=== PATIENT | female | born 1950 | race Caucasian/White ===

== ENCOUNTER 2016-11-05 14:25 | Outpatient (CLI) | payer MEDICARE, OTHER ==
[~2016-11-05] VITALS: Ht 170.2 cm; Wt 97.1 kg
[2016-11-05 14:39] VITALS: BP 121/74
[2016-11-05] MEDS ORDERED: CYCL10TA9 PO (15:18)
[2016-11-05] MEDS ORDERED: CALC-6 PO (15:18)
[2016-11-05] MEDS ORDERED: SIMV40TA4 PO (15:18)
[2016-11-05] MEDS ORDERED: METF500T8 PO (15:18)
[2016-11-05] MEDS ORDERED: METO10TA3 PO (15:18)
[2016-11-05] MEDS ORDERED: CANA300T PO (15:18)
[2016-11-05] MEDS ORDERED: OMEP20TA33 PO (15:18)
[2016-11-05] MEDS ORDERED: ASPI-586 PO (15:18)
[2016-11-05] MEDS ORDERED: CITA20TA7 PO (15:18)
[2016-11-05] MEDS ORDERED: MULT-974 PO (15:18)
== END 2016-11-05 14:50 | disposition home or self-care (01) ==
LOC: PREOP 14:25
PROVIDERS: ATTEND Obstetrics & Gynecology
DX: Z01.818 Encounter for other preprocedural examination (principal); N81.6 Rectocele
CPT/HCPCS: 87081

== ENCOUNTER 2016-11-10 06:00 | Day surgery (SDC) | payer MEDICARE, OTHER ==
[~2016-11-10] VITALS: Ht 170.2 cm; Wt 97.1 kg
[~2016-11-10 06:00] MED LIST: ASPI-586 PO; CALC-6 PO; CANA300T PO; CITA20TA7 PO; CYCL10TA9 PO; METF500T8 PO; METO10TA3 PO; MULT-974 PO; OMEP20TA33 PO; SIMV40TA4 PO
[2016-11-10] MEDS ORDERED: FAMOTIDINE 20MG/2ML IV (PEPCID) IV ONE (06:30)
[2016-11-10] MEDS ORDERED: ceFAZolin 1,000 MG (ANCEF) VIAL ONE (06:32)
[2016-11-10] MEDS ORDERED: metroNIDAZOLE 500MG/100ML IVPB 100 ML ONE (06:32)
[2016-11-10] MEDS ORDERED: NS (IVPB) 50 ML ONE (06:32)
[2016-11-10] MEDS: LACTATED RINGERS 1,000 ML IV PRN ×3 (06:43→10:04)
[2016-11-10] MEDS ORDERED: metroNIDAZOLE 500 MG/100 ML IVPB (PRE-MIX) IV ONE (06:45)
[2016-11-10] MEDS ORDERED: ceFAZolin 1 GM/NS 50 ML IVPB IV ONE ×2 (06:45)
[2016-11-10] MEDS ORDERED: CATHETER FLUSH 10 ML SYR IV PRN (06:45)
[2016-11-10] MEDS ORDERED: ESTRADIOL VAGINAL CREAM 42.5 GM (ESTRACE) VG ONE (07:16)
[2016-11-10] MEDS ORDERED: NS (IVPB) 100 ML ONE (07:16)
[2016-11-10] MEDS ORDERED: VASOPRESSIN INJECTION 20 UNIT/ML VIAL ONE (07:16)
[2016-11-10 07:18] VITALS: BP 138/92
--- NOTE | 2016-11-10 07:19 | Progress Note-Pre Operative ---
Pre-Operative Progress Note H&P Reviewed The H&P was reviewed, patient examined and no changes noted. Date H&P Reviewed: Nov 10, 2016 Time H&P Reviewed: 07:20 Pre-Operative Diagnosis: rectocele WOODY NEAL DO Nov 10, 2016 07:19
[2016-11-10] MEDS ORDERED: LIDOCAINE PF 2% 10 ML (XYLOCAINE) AMP ONE (07:20)
[2016-11-10] MEDS ORDERED: LACTATED RINGERS 1,000 ML IV ONE ×3 (07:20→10:01)
[2016-11-10] MEDS ORDERED: proPOfol 200 MG/20 ML (DIPRIVAN) VIAL IV ONE (07:20)
[2016-11-10] MEDS ORDERED: SEVOFLURANE (ULTANE) 15 ML INHAL SOLN ONE ×6 (07:20→09:10)
[2016-11-10] MEDS ORDERED: ONDANSETRON 4 MG/2 ML (SDV) Z0FRAN ONE (07:20)
[2016-11-10] MEDS ORDERED: fentaNYL INJECTION 100 MCG/2 ML AMP ONE (07:21)
[2016-11-10] MEDS ORDERED: MIDAZOLAM 2 MG/2 ML (VERSED) VIAL ONE (07:21)
--- NOTE | 2016-11-10 09:07 | Operative Report ---
Operative Report Date of Procedure/Surgery Nov 10, 2016 Surgeon (s) WOODY NEAL DO Sample Taker Operator (s): GLORIA Box, MS IV Post-Operative Diagnosis Rectocele Procedure Performed Posterior colporrhaphy, perineorrhaphy Description of Procedure Anesthesia Type: General Estimated blood loss (mL): 100 Specimen(s) collected/removed none Description of the Procedure With informed consent, the patient was taken to the OR where general anesthesia was found to be adequate. She was prepped and draped in the usual sterile fashion in the dorsolithotomy position. A Maguire catheter was placed in the vagina. The above mentioned findings were found. The perineum was grasped on either side of the perineum with Chante clamps. the posterior wall was injected with dilute vasopressin. An incision was made in the midline and then Quintanilla scissors were used to undermine the posterior vaginal epithelium. There was extensive scarring from previous perineum lacerations and repairs and this needed to be dissected out sharply with a knife and Metzenbaum scissors. The lone star retractor was placed and sutured into place. The vaginal epithelium was dissected gently off the posterior vaginal mucosa to the vaginal cuff. There was a posterior enterocele that was encountered. Once the epithelium was dissected off the posterior vaginal fascia, the enterocele was reduced and repaired with a pursestring stitch of 0-0 Ethibond. I then repaired the posterior defect with interrupted mattress stitches of 2-0 Vicryl. due to the large defect, i placed two layers of suture. I then trimmed the excess vaginal mucosa and the repair the vaginal epithelium with 2-0 Vicryl in a running fashion to the hymen. The patient had a large hymenal remnant I now injected the perineal area with dilute vasopressin. I then removed pyramidal shaped portion of the perineum. removing all the previous scarring and the hymenal remnant. I repaired the perineum with 2-0 Vicryl in standard fashion. There was good hemostasis. The vagina was irrigated and vaginal packing was placed with Estrace cream. Findings of the Procedure 3-4 + rectocele, gapy introitus, hymenal remnant. High cystocele (patient declined repair) Allergies and Home Medications Allergies Coded Allergies: No Known Drug Allergies (Unverified , 11/05/16) Home Medications Aspirin 81 Mg Tablet.dr, 81 MG PO DAILY, (Reported) Calcium Carbonate/Vitamin D3 1 Each Tablet, 1 EACH PO DAILY, (Reported) Canagliflozin 300 Mg Tablet, 300 MG PO DAILY, (Reported) Citalopram Hydrobromide 20 Mg Tablet, 20 MG PO DAILY, (Reported) Cyclobenzaprine HCl 10 Mg Tablet, 10 MG PO BID, (Reported) Docusate Sodium 100 Mg Capsule, 100 MG PO BID, #60 Ref 3 Prescribed by: WOODY NEAL on 11/10/161728 Ibuprofen 600 Mg Tablet, 600 MG PO Q6H, #40 Prescribed by: WOODY NEAL on 11/10/161728 Metformin HCl 500 Mg Tab.er.24h, 500 MG PO DAILY, (Reported) Methylcellulose 500 Mg Tablet, 1,000 MG PO QID, #120 Prescribed by: WOODY NEAL on 11/10/161728 Metoclopramide HCl 10 Mg Tablet, 10 MG PO ACHS, (Reported) Multivitamin 1 Each Tablet, 1 EACH PO DAILY, (Reported) Omeprazole Magnesium 20 Mg Tablet.dr, 40 MG PO DAILY, (Reported) Simvastatin 40 Mg Tablet, 40 MG PO DAILY, (Reported) WOODY NEAL DO Nov 10, 2016 09:07
[2016-11-10] MEDS ORDERED: ONDANSETRON 4 MG/2 ML (SDV) Z0FRAN IV PRN (09:15)
[2016-11-10] MEDS ORDERED: BENZOCAINE/MENTHOL (DERMOPLAST) 56 ML CAN TP PRN (09:15)
[2016-11-10] MEDS ORDERED: PATIENT MAY USE OWN MEDS, ALL MC SCH (09:15)
[2016-11-10] MEDS ORDERED: METOCLOPRAMIDE INJ 10 MG/2 ML (REGLAN) IV PRN (09:15)
[2016-11-10] MEDS ORDERED: morphine INJ 10 MG/ML 1ML (SYR OR VIAL) IV PRN (09:15)
[2016-11-10] MEDS ORDERED: HYDROcodone/APAP 5 MG/325 MG (LORTAB) TAB PO PRN (09:15)
[2016-11-10] MEDS ORDERED: ONDANSETRON 4 MG/2 ML (SDV) Z0FRAN IVP PRN (09:30)
[2016-11-10] MEDS ORDERED: morphine INJ 10 MG/ML 1ML (SYR OR VIAL) IVP PRN (09:30)
[2016-11-10] MEDS: KETOROLAC 30 MG/ML VIAL IV SCH ×3 (09:30→21:39)
[2016-11-10] MEDS ORDERED: fentaNYL INJECTION 100 MCG/2 ML AMP IVP PRN (09:30)
[2016-11-10 10:25] VITALS: BP 110/72
[2016-11-10] MEDS ORDERED: OMEPRAZOLE 40 MG CAPSULE PO SCH (12:15)
[2016-11-10 13:06] VITALS: BP 111/64
[2016-11-10 16:00] VITALS: BP 104/61
[2016-11-10] MEDS ORDERED: DOCU-143 PO (17:29)
[2016-11-10] MEDS ORDERED: METH500T5 PO (17:29)
[2016-11-10] MEDS ORDERED: IBUP-1773 PO (17:29)
--- NOTE | 2016-11-10 17:32 | Discharge Inst-Women's Service ---
Discharge Inst-Women's Serv Depart Medication/Instructions New, Converted or Re-Newed RX: Transmitted to Pharmacy Instructions at least 8 glasses of water daily start citrucel and continue colace High fiber diet (included info) Keep stools soft No lifting over 10 lbs Nothing in the vagina no driving for 1 week Keep vaginal estrogen. Will start to use in 4-6 weeks Final Diagnosis rectocele chronic constipation diabetes, Type II Consults/Follow Up Additional Follow Up: Yes (1-2 weeks) Activity Activity: Activity as Tolerated Driving Instructions: No Driving for 1 Week NO SMOKING: NO SMOKING Nothing Inside Vagina: No Douching, No Kouts, No Tampons Diet Discharge Diet: No Restrictions, Other Diet (high fiber) Symptoms to Report to : Bleeding Excessive, Pain Increased, Constipation( Persistant), Fever Over 101 Degrees F, Vaginal Bleeding Increase, Vaginal Discharge Foul For Any Problems or Questions: Contact Your Physician Skin/Wound Care Bathing Instructions: WOODY Art DO Nov 10, 2016 17:32
[2016-11-10] MEDS: D5 LR IV SOLUTION 1,000 ML IV SCH (18:24)
[2016-11-10 21:35] VITALS: BP 112/67
[2016-11-10] MEDS: MUPIROCIN 2% OINT 22 GM (BACTROBAN) TUBE NSEACH SCH (21:40)
[2016-11-11] MEDS ORDERED: inSUlin (REGULAR) HUMAN 1 UNIT/0.01 ML (CHARGE PER UNIT) SC SCH
[2016-11-11] MEDS: D5 LR IV SOLUTION 1,000 ML IV SCH ×3 (01:57→09:38)
[2016-11-11 02:00] VITALS: BP 113/69
[2016-11-11] MEDS: KETOROLAC 30 MG/ML VIAL IV SCH (04:30)
[2016-11-11 06:40] VITALS: BP 123/75
[2016-11-11 08:00] VITALS: BP 129/70
[2016-11-11] MEDS ORDERED: IBUPROFEN 600 MG (MOTRIN) TAB PO SCH (08:00)
[2016-11-11] MEDS: MUPIROCIN 2% OINT 22 GM (BACTROBAN) TUBE NSEACH SCH (08:15)
--- NOTE | 2016-11-11 08:15 | Progress Note-Standard ---
Standard Progress Note Progress Notes/Assess & Plan Date Seen 11/11/16 Assess & Plan/Chief Complaint POD#1 Pt denies complaints No on O2 at home Has not ambulated or voided, packing/le removed at 0700 Bleeding minimal Pain controlled VS - Last 72 Hours, by Label 11/10/16 11/10/16 11/10/16 11/10/16 07:18 10:25 10:30 13:06 Temp 97.3 96.6 96.5 Pulse 79 86 89 Resp 18 B/P (MAP) 138/92 110/72 111/64 Pulse Ox 92 90 90 94 O2 Delivery Room Air Room Air Room Air Room Air 11/10/16 11/10/16 11/11/16 11/11/16 16:00 21:35 02:00 06:40 Temp 97.0 97.3 95.6 97.0 Pulse 71 74 71 71 Resp B/P (MAP) 104/61 112/67 113/69 123/75 Pulse Ox 97 92 96 97 O2 Delivery Room Air Room Air Nasal Cannula Nasal Cannula O2 Flow Rate 1.50 1.50 Intake and Output 11/11/16 00:00 Intake Total 2900 ml Output Total 1350 ml Balance 1550 ml Intake Oral 750 ml IV Total 2150 ml Output Urine Total 1350 ml Gen NAD, O2 in place by NC 1.5L Abd soft nttp Laboratory Tests Test 11/10/16 11:43 11/10/16 17:54 11/10/16 21:50 11/11/16 06:36 Range/Units Glucometer 104 180 H 117 H 112 H 70-110 MG/DL A/P: 66 y/o POD#1 s/p posterior repair by Dr. Krueger Routine post-op care Sugars relatively well controlled Discharge once ambulating/voiding, f/u as instructed by ANTHONY Aquino MD Nov 11, 2016 08:15
[2016-11-11] MEDS ORDERED: DOCUSATE SODIUM 100 MG (COLACE) CAP PO SCH (09:00)
--- NOTE | 2016-11-11 09:46 | Anesthesia-General Post-Op ---
General Patient Condition Mental Status/LOC: Same as Preop Cardiovascular: Satisfactory Nausea/Vomiting: Absent Respiratory: Satisfactory Pain: Controlled Complications: Absent Post Op Complications Complications None Follow Up Care/Instructions Patient Instructions None needed. Anesthesia/Patient Condition Patient Condition Patient is doing well, no complaints, stable vital signs, no apparent adverse anesthesia problems. No complications reported per nursing. DAYSI EATON CRNA Nov 11, 2016 09:46
[2016-11-12] MEDS ORDERED: metFORMIN XR 500 MG (GLUCOPHAGE XR) TAB PO SCH (07:00)
== END 2016-11-11 10:35 | disposition home or self-care (01) ==
LOC: SDC 06:00 → EDSTATUS 08:00 → WS 09:46 → SCHINTOOBSV 14:31 → SDC 11-11 10:35
PROVIDERS: ATTEND Obstetrics & Gynecology
DX: N81.6 Rectocele (principal); N81.10 Cystocele, unspecified
CPT/HCPCS: 82962; 94664; 96361; 96375; 96376